=== PATIENT | male | born 1985 | race American Indian/Alaskan Native ===

== ENCOUNTER 2019-11-25 13:32 | Emergency (ER) | payer SELFPAY ==
[2019-11-25 14:35] VITALS: BP 128/72
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
[2019-11-25] MEDS ORDERED: IBUPROFEN 800 MG TAB PO ONE (20:51)
[2019-11-25] MEDS ORDERED: diphenhydrAMINE 25 MG CAP PO ONE (20:51)
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
== END 2019-11-25 21:10 | disposition home or self-care (01) ==
LOC: ED 13:32
DX: S00.83XA Contusion of other part of head, initial encounter (principal); H21.02 Hyphema, left eye; Z79.899 Other long term (current) drug therapy; X58.XXXA Exposure to other specified factors, initial encounter; Y93.89 Activity, other specified; Y92.89 Other specified places as the place of occurrence of the external cause; Y99.8 Other external cause status
CPT/HCPCS: 70486; 99283